=== PATIENT | female | born 2000 | race Caucasian/White ===

== ENCOUNTER 2021-12-28 10:50 | Emergency (ER) | payer BC, OTHER ==
[2021-12-28 11:32] LABS: RED BLOOD COUNT 4.79 M/UL (4.00-5.10); WHITE BLOOD COUNT 5.9 K/UL (4.5-11.0)
[2021-12-28 12:14] LABS: BUN/CREATININE RATIO 17 (0-10)
== END 2021-12-28 12:55 | disposition home or self-care (01) ==
LOC: ER1 10:50
PROVIDERS: Physician Assistant
DX: K59.00 Constipation, unspecified (principal); R10.30 Lower abdominal pain, unspecified
CPT/HCPCS: 80053; 81001; 84703; 85025; 87077; 87086; 87186; 96374; 96375; 99284; J1885; J2405